=== PATIENT | female | born 1965 | race Caucasian/White ===

== ENCOUNTER 2016-08-23 09:15 | Emergency (ER) | payer BC, SELFPAY ==
[2016-08-23 09:40] LABS: Blood, Urine Large (Negative); Clarity Turbid (Clear); Glucose, Urine (Dipstick) Negative (Negative); Leukocyte Large (Negative); Nitrite Negative (Negative); Protein, Urine (Dipstick) 100 mg/dL (Neg-Trace)
[2016-08-23 09:48] LABS: Bilirubin Negative (Negative)
[2016-08-23 09:49] LABS: Bacteria/HPF 3+ HPF (None Seen); Transitional Epithelial 0-3 HPF (0-3)
[2016-08-23] MEDS ORDERED: Ondansetron HCl/PF 4 MG/2 ML Vial ONE (10:03)
[2016-08-23] MEDS ORDERED: cefTRIAXone\\ROCEPHIN 1 GM VIAL ONE (10:03)
[2016-08-23] MEDS ORDERED: Sodium Chloride 0.9% 100 ML ONE (10:03)
[2016-08-23 10:20] LABS: #Basophils 0.1 thou/uL (0.0-0.2); #Eosinphils 0.1 thou/uL (0.0-0.7); #Lymphocytes 1.3 thou/uL (1.20-3.40); #Monocytes 0.6 thou/uL (0.11-0.59); #Neutrophils 5.6 thou/uL (1.40-6.50); %Basophils 1.5 % (0.0-1.0); %Eosinophils 1.5 % (0.0-10.0); %Lymphocytes 16.5 % (21.0-51.0); %Monocytes 8.2 % (0.0-10.0); %Neutrophils 72.4 % (42.0-75.0); Hemoglobin 12.1 g/dL (12.0-16.0); Mean Corpuscular HGB CONC 31.8 g/dL (32.0-36.0); Mean Corpuscular Hemoglobin 28.6 pg (27.0-31.0); Mean Corpuscular Volume 89.9 fl (81.0-99.0); Mean Platelet Volume 6.3 fL (7.4-10.4); Platelet Count 179 thou/uL (130-400); RBC Distribution Width 15.6 % (11.5-14.5); Red Blood Cell (RBC) Count 4.25 mill/uL (4.20-5.40); White Blood Cell (WBC) Count 7.8 thou/uL (4.8-10.8)
[2016-08-23 10:33] LABS: ALT (SGPT) 21 U/L (0-55); AST (SGOT) 36 U/L (5-34); Albumin 3.2 g/dL (3.5-5.0); Alkaline Phosphatase 160 U/L (40-150); Anion Gap 13 mmol/L (10-20); BUN (Urea Nitrogen) 8 mg/dL (9.8-20.1); Bilirubin, Total 1.2 mg/dL (0.2-1.2); Calc. Creatinine Clearance 0 mL/min (70-130); Calcium 9.9 mg/dL (7.8-10.44); Carbon Dioxide 28 mmol/L (22-29); Chloride 102 mmol/L (98-107); Estimated GFR-MDRD 58; Globulin 3.6 g/dL (2.4-3.5); Glucose 88 mg/dL (70-105); Protein, Total 6.8 g/dL (6.0-8.3); Sodium 140 mmol/L (136-145)
[2016-08-23 10:54] LABS: Potassium 2.7 mmol/L (3.5-5.1)
[2016-08-23] MEDS ORDERED: Potassium Chloride 20 MEQ TAB ONE (10:59)
[2016-08-23] MEDS ORDERED: Potassium Chloride 20 MEQ/100 ML PREMIX BAG ONE (10:59)
[2016-08-23] MEDS ORDERED: Lidocaine Viscous Sol 2% 15 ml UD Cup ONE (11:56)
[2016-08-23] MEDS ORDERED: Mag-Al Plus 1200 MG/1200 MG/120 MG/30 ML UDCUP ONE (11:56)
[2016-08-23] MEDS ORDERED: HYDROcodone/Acetaminophen 10/325 mg Tablet ONE (13:02)
--- NOTE | 2016-08-23 18:24 | CT ---
CT OF THE ABDOMEN AND PELVIS WITH CONTRAST 08/23/[address] of the abdomen and pelvis was done to evaluate abdominal pain. The patient has had recent abdominal wall surgery. Axial slices were acquired, then coronal and sagittal reconstructions were d one. The lung bases are clear. The liver is somewhat small and has an irregular surface consistent w ith the clinical history of cirrhosis. It is low density suggesting fatty infiltration. A shunt is s een within the liver leading from the portal venous system to the inferior vena cava. The spleen is normal in size. The pancreas was unremarkable. The adrenal glands appear normal. There has been a pr ior cholecystectomy. The kidneys show no solid mass or hydronephrosis, but a small cyst is seen in t he left kidney. The aorta is normal in size. There is some minimal distention of bowel but it does n ot have the appearance of an obstruction. There is considerable fecal material in the colon. No infl ammatory changes are seen around bowel. Attention is drawn to the anterior abdominal wall. There are inflammatory changes throughout the wal l, presumably along the operative sites in the midline. There are two areas that are a bit rounder a nd more discrete in the midline. One is 3.3 cm in diameter at about the level of the iliac crest. Th e other is higher at about the L2 level. It measures 2.1 cm in diameter. These could be either small abscesses or seromas. CT of the pelvis showed no pelvic masses or fluid collections. No inflammatory changes were seen in the pelvis. Degenerative changes are present in particularly the lower lumbar spine. IMPRESSION: 1. Inflammatory changes in the anterior abdominal wall midline that are presumably postoperativ e in nature. 2. Two more pronounced and discrete rounded areas within the inflammatory change that may be sm all abscesses forming or seromas or blood collections. 3. Cirrhosis. 4. No acute internal finding. POS: HOME
== END 2016-08-23 13:23 | disposition home or self-care (01) ==
LOC: BURERS 09:15
DX: N39.0 Urinary tract infection, site not specified (principal); T81.4XXA Infection following a procedure, initial encounter; K21.9 Gastro-esophageal reflux disease without esophagitis; F32.9 Major depressive disorder, single episode, unspecified; F41.9 Anxiety disorder, unspecified; Z79.891 Long term (current) use of opiate analgesic; Z79.899 Other long term (current) drug therapy
CPT/HCPCS: 36415; 74177; 80053; 81003; 81015; 83605; 85025; 87040; 87086; 87149; 96361; 96365; 96375; J0696; J2405; J3480; J7050

== ENCOUNTER 2016-08-28 00:51 | Emergency (ER) | payer SELFPAY ==
[2016-08-28] MEDS ORDERED: Ondansetron HCl/PF 4 MG/2 ML Vial ONE (00:59)
[2016-08-28] MEDS ORDERED: Fentanyl 100 MCG/2 ML VIAL ONE (00:59)
[2016-08-28] MEDS ORDERED: Cefepime 1 GM VIAL ONE ×2 (01:13→01:14)
[2016-08-28] MEDS ORDERED: Sodium Chloride 0.9% 100 ML ONE (01:15)
[2016-08-28 01:40] LABS: #Basophils 0.1 thou/uL (0.0-0.2); #Eosinphils 0.3 thou/uL (0.0-0.7); #Lymphocytes 1.3 thou/uL (1.20-3.40); #Monocytes 0.5 thou/uL (0.11-0.59); %Basophils 1.5 % (0.0-1.0); %Eosinophils 5.5 % (0.0-10.0); %Lymphocytes 25.4 % (21.0-51.0); %Monocytes 8.9 % (0.0-10.0); %Neutrophils 58.7 % (42.0-75.0); Hemoglobin 12.3 g/dL (12.0-16.0); Mean Corpuscular HGB CONC 35.4 g/dL (32.0-36.0); Mean Corpuscular Hemoglobin 30.8 pg (27.0-31.0); Mean Corpuscular Volume 87.1 fl (81.0-99.0); Mean Platelet Volume 8.1 fL (7.4-10.4); Platelet Count 230 thou/uL (130-400); RBC Distribution Width 16.5 % (11.5-14.5); Red Blood Cell (RBC) Count 3.99 mill/uL (4.20-5.40); White Blood Cell (WBC) Count 5.1 thou/uL (4.8-10.8)
[2016-08-28 02:28] LABS: PTT 36.9 SEC (22.9-36.1)
[2016-08-28 02:33] LABS: Blood, Urine Trace (Negative); Clarity Slightly Cloudy (Clear); Glucose, Urine (Dipstick) Negative (Negative); Leukocyte Trace (Negative); Nitrite Negative (Negative); Protein, Urine (Dipstick) Negative (Neg-Trace); Specific Gravity, Urine 1.015 (1.005-1.030); Urobilinogen 0.2 mg/dL (0.2-1.0); pH, Urine 6.5 (5.0-9.0)
[2016-08-28 02:36] LABS: INR-International Normal Ratio 1.6
[2016-08-28 02:42] LABS: Bilirubin Negative (Negative)
[2016-08-28 02:43] LABS: ALT (SGPT) 31 U/L (0-55); AST (SGOT) 77 U/L (5-34); Albumin 3.2 g/dL (3.5-5.0); Alkaline Phosphatase 186 U/L (40-150); Anion Gap 16 mmol/L (10-20); BUN (Urea Nitrogen) 6 mg/dL (9.8-20.1); Bilirubin, Total 1.4 mg/dL (0.2-1.2); Calc. Creatinine Clearance 0 mL/min (70-130); Calcium 9.1 mg/dL (7.8-10.44); Carbon Dioxide 23 mmol/L (22-29); Chloride 102 mmol/L (98-107); Estimated GFR-MDRD 67; Globulin 3.8 g/dL (2.4-3.5); Glucose 69 mg/dL (70-105); Lipase 16 U/L (8-78); Potassium 3.2 mmol/L (3.5-5.1); Sodium 138 mmol/L (136-145)
[2016-08-28 02:44] LABS: Bacteria/HPF 2+ HPF (None Seen); Yeast-All Forms 3+ HPF (None Seen)
[2016-08-28] MEDS ORDERED: Morphine Sulfate 2 MG/ML SYRINGE ONE (02:52)
[2016-08-28 03:05] LABS: Troponin I 0.044 ng/mL (< 0.028)
[2016-08-28 03:07] LABS: CKMB 7.2 ng/mL (0-6.6)
--- NOTE | 2016-08-28 09:17 | CT ---
PRELIMINARY REPORT/[facility]/EMERGENCY AFTER HOURS PROCEDURE: EXAM: CT Abdomen and Pelvis Without Intravenous Contrast CLINICAL HISTORY: Pain; Abdominal pain; Generalized; Prior surgery; Surgery date: 3-7 days post-oper ative; Surgery type: Fecal transplant on . Surgical history of hernia repair, notes x3 one r epair 2016 \T\ 2 repairs 2017, surgical history of spinal surgery, surgical history of cholecystecto my, surgical history of appendectomy, surgical history of hysterectomy. Tubal ligation. Tips shunt i n liver on 10/28/2014. ; Patient HX: Pt here with abdominal pain since sunday. Pt feels like she c ant swallow anything and has dry mouth. Pt had oral contrast last sun. ; Additional info: Attempted contrast but iv infiltrated after 10 cc. Continued without contrast per dr. San. TECHNIQUE: Axial computed tomography images of the abdomen and pelvis without intravenous contrast. This CT exam was performed using one or more of the following dose reduction techniques: automated e xposure control, adjustment of the mA and/or kV according to patient size, and/or use of iterative r econstruction technique. Coronal reformatted images were created and reviewed. EXAM DATE/TIME: 08/28/2016 1:37 AM COMPARISON: No relevant prior studies available. FINDINGS: Lower thorax: No acute findings. ABDOMEN: Liver: The liver is diffusely low in density, somewhat heterogeneous with subtle surface contour nod ularity which may represent a combination of cirrhosis and steatosis. TIPS in place. Gallbladder and bile ducts: There has been a cholecystectomy. The common bile duct measures up to 10 mm in diameter. No calcified ductal stones. Pancreas: The pancreas is mildly atrophic. No ductal dilation. Spleen: Unremarkable. No splenomegaly. Adrenals: Unremarkable. No mass. Kidneys and ureters: Mild bilateral perinephric stranding. Left renal cyst. No calculi. No hydroneph rosis. Stomach and bowel: Moderate stool in the proximal to mid large bowel. No obstruction. No mucosal thi ckening. Appendix: Reported appendectomy. PELVIS: Bladder: Unremarkable. No stones. Reproductive: There has been a hysterectomy. No adnexal cysts or masses are identified. ABDOMEN and PELVIS: Intraperitoneal space: Small amount of abdominal and pelvic ascites. No free air. Bones/joints: No acute fracture. No dislocation. Soft tissues: Postsurgical changes at the ventral abdominal wall. Small amount of lobulated subincisional fluid. Vasculature: Aortoiliac atherosclerosis. No abdominal aortic aneurysm. Lymph nodes: Unremarkable. No enlarged lymph nodes. IMPRESSION: 1. Moderate stool within the proximal to mid large bowel. No obstruction. 2. Mild bilateral perinephric stranding. This is nonspecific and may be chronic. Acute superimposed inflammatory process not excluded. 3. Other findings as above. ---We are pleased to participate in the care of your patient.--- Thank you for allowing us to participate in the care of your patient. Dictated and Authenticated by: Carmen Katz MD 08/28/2016 2:22 AM Central Time ([place] \T\ [place]) FINAL REPORT CT OF THE ABDOMEN AND PELVIS WITHOUT CONTRAST: Date: 08/28/[address] of the abdomen and pelvis was performed and compared with the 08/23/16 study. The study wa s initially ordered with IV contrast, but the patient's IV infiltrated, so it is essentially a nonco ntrast study. My understanding is that the infiltration site was suitably cared for with cold compre sses and a relatively small amount of contrast was injected. The lung bases are clear. Findings of cirrhosis and diffuse fatty infiltration of liver are present as usual. A TIPS shunt is in place. There has been a prior cholecystectomy. The spleen, pancreas, ad renal glands, and aorta showed no acute findings. There is a slight amount of perinephric stranding bilaterally, but it does not seem any different than before. As mentioned previously, there appears to be a small cyst in the mid to upper portion of the left kidney. There is no hydronephrosis. There is some mild distention of the colon, but no evidence of tala obstruction. A large amount of fecal material is present, particularly in the right colon, which also has contrast mixed with it. T his seems to have moved or changed very little since the 08/23/16 study. No inflammatory changes are seen around bowel. No free air or free fluid was present in the abdomen. As mentioned before, there is substantial streaking in the anterior abdominal wall along the operati ve sites. Previously, there were two somewhat more discrete rounded soft tissue density collections in the midline of the anterior abdominal wall, one lower and one a little higher. Both of these have decreased in size slightly over the interval. The more superior one now measures 1.6 cm in diameter and the lower one 2.[address] of the pelvis shows no pelvic masses, fluid collections, or inflammatory changes. IMPRESSION: 1. Minimal intra-abdominal change since the 08/23/16 study. 2. Hepatic cirrhosis. 3. Slight perinephric stranding, but no different than before. This may or may not be significant f or current or prior infection. 4. Large amounts of fecal material in the colon, especially right colon, which seems to have change d little over time. No tala obstruction. 5. Inflammatory stranding of the anterior abdominal wall in the midline. The two more focal collect ions mentioned previously have both decreased in size slightly in this short interval. Report in agreement with preliminary reading by [facility]. POS: HOME
== END 2016-08-28 03:28 | disposition short-term general hospital (02) ==
LOC: BURERS 00:51
DX: K65.8 Other peritonitis (principal); B96.89 Other specified bacterial agents as the cause of diseases classified elsewhere; K21.9 Gastro-esophageal reflux disease without esophagitis; B19.20 Unspecified viral hepatitis C without hepatic coma; F41.9 Anxiety disorder, unspecified; F32.9 Major depressive disorder, single episode, unspecified; Z79.899 Other long term (current) drug therapy
CPT/HCPCS: 36415; 74176; 80053; 81003; 81015; 82553; 83605; 83690; 84484; 85025; 85610; 85730; 87040; 87086; 93005; 94760; 96365; 96375; J0692; J2270; J2405; J3010; J7050

== ENCOUNTER 2017-09-10 21:58 | Emergency (ER) | payer SELFPAY ==
[2017-09-10 23:02] LABS: Bilirubin Negative (Negative); Blood, Urine Negative (Negative); Clarity Slightly Cloudy (Clear); Glucose, Urine (Dipstick) Negative (Negative); Leukocyte Small (Negative); Nitrite Positive (Negative); Protein, Urine (Dipstick) Negative (Neg-Trace)
[2017-09-10 23:11] LABS: INR-International Normal Ratio 1.5; PTT 36.2 SEC (22.9-36.1); Prothrombin Time 18.1 SEC (12.0-14.7)
[2017-09-10 23:12] LABS: Bacteria/HPF 3+ HPF (None Seen); RBC/HPF 0-3 HPF (0-3); Squamous Epithelial 0-3 HPF (0-3)
[2017-09-10 23:20] LABS: ALT (SGPT) 19 U/L (8-55); AST (SGOT) 37 U/L (5-34); Alkaline Phosphatase 281 U/L (40-150); Anion Gap 15 mmol/L (10-20); BUN (Urea Nitrogen) Less than 4 mg/dL (9.8-20.1); Bilirubin, Total 2.1 mg/dL (0.2-1.2); CKMB 0.9 ng/mL (0-6.6); Calc. Creatinine Clearance 0 mL/min (70-130); Carbon Dioxide 30 mmol/L (22-29); Chloride 96 mmol/L (98-107); Estimated GFR-MDRD 86; Glucose 95 mg/dL (70-105); Lipase 15 U/L (8-78); Potassium 3.2 mmol/L (3.5-5.1); Sodium 138 mmol/L (136-145); Troponin I Less than 0.010 ng/mL (< 0.028)
[2017-09-10 23:29] LABS: %Lymphocytes 20.8 % (21.0-51.0); %Monocytes 9.5 % (0.0-10.0); %Neutrophils 65.2 % (42.0-75.0); Hemoglobin 13.2 g/dL (12.0-16.0); Mean Corpuscular HGB CONC 34.8 g/dL (32.0-36.0); Mean Corpuscular Hemoglobin 35.3 pg (27.0-31.0); Mean Platelet Volume 6.2 fL (7.4-10.4); Platelet Count 169 thou/uL (130-400); RBC Distribution Width 16.9 % (11.5-14.5); Red Blood Cell (RBC) Count 3.73 mill/uL (4.20-5.40); White Blood Cell (WBC) Count 11.8 thou/uL (4.8-10.8)
[2017-09-10 23:30] LABS: #Basophils 0.1 thou/uL (0.0-0.2); #Eosinphils 0.4 thou/uL (0.0-0.7); #Lymphocytes 2.5 thou/uL (1.20-3.40); #Monocytes 1.1 thou/uL (0.11-0.59); #Neutrophils 7.7 thou/uL (1.40-6.50); %Eosinophils 3.6 % (0.0-10.0)
[2017-09-10 23:31] LABS: Anisocytosis SLIGHT = 6-15 cells (100X) (0-5/hpf); Macrocytosis SLIGHT = 6-15 cells (100X) (0-5/hpf)
[2017-09-10] MEDS ORDERED: diphenhydrAMINE 12.5 MG/5 ML UDCUP ONE (23:31)
[2017-09-10] MEDS ORDERED: Morphine 4 MG/ML Carpuject ONE (23:31)
[2017-09-10] MEDS ORDERED: diphenhydrAMINE 50 MG/ML VIAL ONE (23:32)
--- NOTE | 2017-09-11 | RAD ---
CHEST PA AND LATERAL TWO VIEWS: 09/10/2017 COMPARISON: Study from [facility] done on 05/02/2015. FINDINGS: There is some linear streaking in the lung bases, particularly the left lower lobe. The linear natur e makes it more likely that this is due to subsegmental atelectasis than pneumonia. There is no vasc ular congestion, edema, or pleural effusion. Heart size is normal. There are areas of increased den sity overlying the left 6th through 8th ribs. I would be suspicious of healing rib fractures here, a nd maybe even other ribs on the left. IMPRESSION: 1. Linear basilar streaking, particularly left lower lobe, more likely subsegmental atelectasis than not. 2. Possible healing rib fractures on the left. POS: HOME
[2017-09-11] MEDS ORDERED: cefTRIAXone\\ROCEPHIN 2 GM VIAL ONE (00:34)
[2017-09-11 05:29] LABS: PLT Morphology Comment Appears Adequate
--- NOTE | 2017-09-11 08:32 | CT ---
PRELIMINARY REPORT/[facility]/EMERGENTY AFTER-HOURS PROCEDURE CT Abdomen and Pelvis With Intravenous Contrast CLINICAL HISTORY: 52 years old, female; Pain; Abdominal pain; Localized; Left lower quadrant (llq); Prior surgery; Surg bryce date: 6+ months; Surgery type: Abd wall surg august 2016; Patient HX: Today llq pain; Additional i nfo: Hep c cirrhosis gerd hernia repair x3 TECHNIQUE: Axial computed tomography images of the abdomen and pelvis with intravenous contrast. All CT scans at this facility use one or more dose reduction techniques, viz.: automated exposure control; ma/kV adj ustment per patient size (including targeted exams where dose is matched to indication; i.e. head); or iterative reconstruction technique. CONTRAST: 100 mL of ISOVUE administered intravenously. COMPARISON: No relevant prior studies available. FINDINGS: Lung bases: Unremarkable. No mass. No consolidation. ABDOMEN: Liver: Diffuse fatty infiltration and cirrhosis. TIPS shunt noted. No definite mass Gallbladder and bile ducts: Prior cholecystectomy. Dilatation of the common bile duct measuring up to 1.4 Cm which may be related to reservoir effect. Pancreas: Unremarkable. No mass. No ductal dilation. Spleen: Unremarkable. No splenomegaly. Adrenals: Unremarkable. No mass. Kidneys and ureters: Left renal cyst No solid mass. No hydronephrosis. Stomach and bowel: No obstruction. Mild mucosal thickening. PELVIS: Appendix: No findings to suggest acute appendicitis. Bladder: Partially decompressed and question mild thickening Reproductive: Prior hysterectomy. Poorly visualized ovaries ABDOMEN and PELVIS: Intraperitoneal space: Trace ascites No free air. No significant fluid collection. Bones/joints: No acute fracture. No dislocation. Degenerative changes in the spine and pelvis Soft tissues: Unremarkable. Vasculature: Diffuse atherosclerosis No abdominal aortic aneurysm. Lymph nodes: Unremarkable. No enlarged lymph nodes. IMPRESSION: Nonspecific nonobstructed bowel gas pattern. Correlate for enteritis Partially decompressed urinary bladder with mild thickening. Correlation for cystitis may be helpful as clinically indicated No definite evidence for diverticulitis Cirrhosis and trace ascites Dilatation of the common bile duct in this patient with prior cholecystectomy which may be related to reservoir effect. No definite calculi. Comparison with prior images would be helpful Thank you for allowing us to participate in the care of your patient. Dictated and Authenticated by: Holden Alvarenga MD 09/11/2017 12:39 AM Central Time ([place] & [place]) FINAL REPORT CT ABDOMEN AND PELVIS WITH CONTRAST: DATE: 09/10/17. FINDINGS: Spiral CT of the abdomen and pelvis was done post IV contrast. Axial slices were acquired, then jeffry nal and sagittal reconstructions were done. Comparison is made with the prior study dated 08/28/16. The lung bases show areas of streaking that are most likely atelectasis. There is evidence of a heal ing rib fracture of one of the left anterior ribs on slice #4. There is probably another one at the same level on the right side anteriorly. The liver again shows signs of diffuse fatty infiltration a nd cirrhosis. A shunt tube is present going from the portal vein to the IVC. The spleen was unremar kable. The pancreas showed no abnormality. The common bile duct is enlarged as before. There has b een a prior cholecystectomy. The aorta shows no aneurysm. A cyst is seen in the upper part of the l eft kidney. Bowel is not distended to suggest obstruction. Some of the small bowel loops are fluid-filled and so me of the wall thickness is perhaps borderline but not definitely abnormal. Given the history of sarabjit rrhea, mild enteritis is a possibility. I do not see any excess mesenteric adenopathy. No inflammat ory changes were seen around specific parts of the bowel. A few minimal diverticula were seen. No f ree air was detected. There is probably a trace of ascites. Inflammatory stranding in the midline of the anterior abdominal wall is noted as on the prior scan of 08/28/16. It actually has improved slightly. CT of the pelvis shows no pelvic masses, fluid collections, or inflammatory changes. The urinary raysa dder wall is somewhat concentrically thickened, but it is not fully distended. This could be caused by either mild cystitis or merely because of the lack of distention. IMPRESSION: 1. Cirrhosis with diffuse fatty infiltrates in the liver. 2. Dilation of the common bile duct, not substantially different than before. 3. Severe constipation seen previously has resolved. There are some equivocal findings of mild ente ritis today. 4. Mild concentric thickening of the urinary bladder wall. Cystitis versus underdistension of the b ladder. 5. Inflammatory changes of the anterior abdominal wall, slightly improved since the last scan. Report in agreement with preliminary reading by [email or web address] [employer].. POS: HOME
== END 2017-09-11 00:49 | disposition short-term general hospital (02) ==
LOC: BURERS 21:58
DX: R10.9 Unspecified abdominal pain (principal); J18.9 Pneumonia, unspecified organism; N39.0 Urinary tract infection, site not specified; K21.9 Gastro-esophageal reflux disease without esophagitis; F41.9 Anxiety disorder, unspecified; F32.9 Major depressive disorder, single episode, unspecified; F17.210 Nicotine dependence, cigarettes, uncomplicated; Z79.899 Other long term (current) drug therapy
CPT/HCPCS: 36415; 51701; 71046; 74177; 80053; 81003; 81015; 82274; 82553; 83605; 83690; 84484; 85025; 85610; 85730; 87040; 94640; 94760; 96374; 96375; A4353; J0696; J1200; J2270; J7620